=== PATIENT | female | born 1940 | race Caucasian/White ===

== ENCOUNTER 2018-02-11 09:07 | Inpatient (IN) | payer OTHER ==
[~2018-02-11] VITALS: Ht 160 cm; Wt 122.9 kg
[~2018-02-11 09:07] MED LIST: ALLOPURINOL100 M1 PO; CALCIUM600 M3 PO; CARDIZEM CD180 M1 PO; CARVEDILOL25 M1 PO; CLONAZEPAM0.5 M2 PO; COUMADIN4 M1 PO; COUMADIN5 M2 PO; KEFLEX500 M1 PO; OMEPRAZOLE20 M2 PO; ONE DAILY1 EACH PO; PRAVASTATIN SOD40 M2 PO; SPIRONOLACTONE25 M1 PO; VITAMIN B-121000 MC3 PO; VITAMIN C500 M6 PO; VITAMIN D2000 UNI1 PO; WARFARIN SODIUM5 M1 PO
--- NOTE | 2018-02-11 11:06 | ED UPPER/LOWER EXTREMITY COMPL ---
History of Present Illness General Chief Complaint: Lower Extremity Problems Stated Complaint: L LEG PAIN Source: patient, family, old records Exam Limitations: no limitations Vital Signs & Intake/Output Vital Signs & Intake/Output Vital Signs Date Time Temp Pulse Resp B/P B/P Pulse O2 O2 Flow FiO2 Mean Ox Delivery Rate 02/11 0925 96.4 103 22 102/73 95 Room Air Allergies Coded Allergies: No Known Allergies (01/14/16) Reconcile Medications Allopurinol 100 MG TABLET 1 TAB PO DAILY GOUT (Reported) Ascorbate Calcium (Vitamin C) 500 MG TABLET 1 TAB PO DAILY SUPPLEMENT ( Reported) Calcium (Elemental-Fr Calcarb) (Calcium) 600 MG CALCIUM (1,500 MG) TABLET 1 TAB PO DAILY SUPPLEMENT (Reported) Carvedilol 25 MG TABLET 1 TAB PO BID HEART/BP (Reported) Cholecalciferol (Vitamin D3) (Vitamin D) 2,000 UNIT TABLET 1 TAB PO DAILY SUPPLEMENT (Reported) Clonazepam 0.5 MG TABLET 2 TAB PO DAILY ANXIETY (Reported) Cyanocobalamin (Vitamin B-12) 1,000 MCG TABLET 1 TAB PO DAILY SUPPLEMENT ( Reported) Diltiazem HCl (Cardizem Cd) 180 MG CAP.ER.24H 1 CAP PO DAILY HEART/BP ( Reported) Hydrochlorothiazide 12.5 MG TABLET 1 TAB PO DAILY WATER RETENTION (Reported) Multivitamin (One Daily) 1 EACH TABLET 1 TAB PO DAILY VITAMIN SUPPORT ( Reported) Pravastatin Sodium 40 MG TABLET 1 TAB PO DAILY CHOLESTEROL (Reported) Spironolactone 25 MG TABLET 1 TAB PO DAILY DIURETIC (Reported) Warfarin Sodium (Coumadin) 5 MG TABLET 1 TAB PO 1700 BLOOD THINNER (Reported) Triage Note: HERE FOR RECHECK TO LEFT LOWER LEG, SEEN HERE ON 02/09 FOR CELLULITS TO LEFT LOWER LEG AND FOOT, PAIN IS WORSE. Triage Nurses Notes Reviewed? yes Onset: Gradual Duration: getting worse Timing: recent history Severity: moderate Severity Numbers: 5 Method of Injury: direct blow, fall HPI: Patient is a 78-year-old with PMH of atrial fibrillation on warfarin, HTN, HLD, edema/venous insufficiency, coronary artery disease with remote angioplasty, right foot gout who presents emergency room with family members in which old records indicate the patient was evaluated at [facility] emergency room 2 days ago for concerns of a mechanical fall approximately one week ago she states that she was taking a bottle And then lost her balance and fell to the pavement on the driveway resulting acute onset of left ankle and foot pain and left shoulder pain 2 days ago AT [facility] patient received x-rays of the left ankle and foot and left shoulder with unremarkable findings however there was concerned of cellulitis upon discharge patient was given Keflex patient has been compliant with her Keflex however family and patient are concerned of worsening erythema swelling ecchymosis in which the redness has expanded beyond the pen markings provided to patient 2 days ago. Patient does state that she had tactile fevers yesterday and intermittent episodes of nausea Patient denies any dyspnea on exertion cough hemoptysis but is complaining of worsening swelling (Grant Demarco) Past History Travel History Traveled to [place] past 21 day No Medical History Any Pertinent Medical History? 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 No (Grant Demarco) Review of Systems Review of Systems Constitutional: Reports: see HPI. EENTM: Reports: no symptoms. Respiratory: Reports: see HPI. Cardiovascular: Reports: see HPI. Gastrointestinal/Abdominal: Reports: no symptoms. Genitourinary: Reports: no symptoms. Musculoskeletal: Reports: see HPI. Skin: Reports: see HPI. Neurological/Psychological: Reports: no symptoms. Hematologic/Endocrine: Reports: no symptoms. Immunological: Reports: no symptoms. All Other Systems: Reviewed and Negative (Grant Demarco) Physical Exam Physical Exam General Appearance: no apparent distress, obese Head: atraumatic Eyes: Bilateral: normal appearance, PERRL. Ears, Nose, Throat: normal pharynx, hearing grossly normal Neck: normal inspection, no midline tenderness Cardiovascular/Respiratory: normal breath sounds, normal peripheral pulses, regular rate/rhythm Peripheral Pulses: 2+ dorsalis pedis (L) Neurologic/Tendon: normal sensation, normal motor functions, normal tendon functions, responds to pain, no evidence tendon injury Skin: intact Diagram Legs Front/Back 1) Noted erythema warmth and point tenderness with surgical pen markings 2) Noted erythema warmth and point tenderness no surgical pen markings 3) Noted scattered ecchymosis and swelling (Phoebe BRISENO,Grant) Progress Differential Diagnosis: arterial insufficiency, cellulitis, CHF, compartment syndrome, contusion, dislocation, DVT, fracture, gout, septic arthritis, sprain, tendon injury Plan of Care: Orders Procedure Date/time Status Heart Healthy Diet 02/11 D Active LACTIC ACID 02/11 1422 Active ED Holding Orders 02/11 1315 Active Admit to inpatient 02/11 1315 Active Vital Signs 02/11 131 Active Code Status 02/11 1315 Active Patient Data 02/11 1311 Active US-UNILATERAL VENOUS DOPPLER 02/11 1216 Active Add-on Test (ER Only) 02/11 1207 Active BLOOD CULTURE 02/11 112 Active TROPONIN LEVEL 02/11 112 Complete PROTHROMBIN TIME 02/11 112 Complete LACTIC ACID 02/11 112 Complete COMPREHENSIVE METABOLIC PANEL 02/11 112 Complete CBC WITHOUT DIFFERENTIAL 02/11 112 Complete B-TYPE NATRIURETIC PEP (BNP) 02/11 1122 Complete EKG 02/11 1122 Active Laboratory Tests 02/11/18 1216: Anion Gap 11, Estimated GFR > 60, BUN/Creatinine Ratio 26.7 H, Glucose 114 H, Lactic Acid 1.1, Calcium 9.6, Total Bilirubin 1.0, AST 17, ALT 21, Alkaline Phosphatase 57, Troponin I < 0.01, Ynk-X-Eutkgbjedyy Pept 923 H, Total Protein 6.5, Albumin 3.5, Globulin 3.0, Albumin/Globulin Ratio 1.2, PT 29.9 H, INR 2.72 H, CBC w Diff NO MAN DIFF REQ, RBC 4.33, MCV 92.7, MCH 31.3 H, MCHC 33.7, RDW 15.1 H, MPV 11.0 H, Gran % 70.6, Lymphocytes % 18.3 L, Monocytes % 9.3, Eosinophils % 1.3, Basophils % 0.5, Absolute Granulocytes 6.0, Absolute Lymphocytes 1.6, Absolute Monocytes 0.8 H, Absolute Eosinophils 0.1, Absolute Basophils 0 Microbiology 02/11 1225 BLOOD: Blood Culture - RECD 02/116 BLOOD: Blood Culture - RECD Patient was neurovascularly intact left lower extremities, patient has concerns of worsening cellulitis on exam compliant with 2 days of Keflex and which she has failed outpatient treatment Patient declines pain medications when offered No concerns of sepsis upon admission discussed disposition plan with patient and family members were aware and have no questions and agree Diagnostic Imaging: Viewed by Me: Radiology Read. CXR Impression: no acute abnormality Initial ED EKG: normal intervals, normal p-waves, normal QRS complex, 75 BPM,NSR Comments: PATIENT: ANGELICA MCGOWAN PRESENT AGE: 78 PATIENT ACCOUNT NO: [id number] : 39 LOCATION: [facility] ORDERING PHYSICIAN: Grant BRISENO SERVICE DATE: 02/11/18 EXAM TYPE: RAD - XRY-CHEST XRAY, TWO VIEWS EXAMINATION: XR CHEST CLINICAL INFORMATION: Shortness of breath COMPARISON: Chest x-ray was recent prior dated 02/16/2017 TECHNIQUE: 2 views of the chest were obtained. FINDINGS: Borderline heart size. Mild central pulmonary vascular congestion. Assessment of the lower lungs is limited due to patient's body habitus. No focal airspace opacity. Mild interstitial edema cannot be entirely excluded. Linear atelectasis or linear nodular opacity projecting upon the right midlung. Hazy opacity right medial base likely secondary to prominence of the epicardiac fat pad. Degenerative changes right shoulder. IMPRESSION: 1. Limited assessment of the lower lungs due to patient's body habitus. 2. Linear nodular appearing opacity right midlung represents a nonspecific finding. Monitoring is recommended. DICTATED BY: Celena Parra MD DATE/TIME DICTATED:02/11/181230 LEGAL BILLING SPECIALIST:DEE DATE/TIME TRANSCRIBED:02/11/181230 (Grant Demarco) Departure Departure Disposition: STILL A PATIENT Condition: Stable Clinical Impression Primary Impression: Cellulitis of right lower leg Referrals: Arminda AMARAL,Concetta King (PCP/Family) Departure Forms: Customer Survey General Discharge Information Admission Note Spoke With: Lewis Chen MD Documentation of Exam: Documentation of any treatments & extenuating circumstances including Concerns Regarding Discharge (functional status, medication knowledge or non-compliance, living conditions, etc.) that warrant an admission rather than observation: [ Patient requires general medicine admission for concerns of failed outpatient treatment with antibiotics in which patient requires IV antibiotics, repeat labs , infectious disease consultation] (Grant Demarco) PA/COTTONSEED MEAT PRESSER Co-Sign Statement Statement: ED Attending supervision documentation- [X] I saw and evaluated the patient. I have also reviewed all the pertinent lab results and diagnostic results. I agree with the findings and the plan of care as documented in the PA's/COTTONSEED MEAT PRESSER's documentation. [X] I have reviewed the ED Record and agree with the PA's/COTTONSEED MEAT PRESSER's documentation. [] Additions or exceptions (if any) to the PAs/COTTONSEED MEAT PRESSER's note and plan are summarized below: [Failed outpatient antibiotics and will require admission to the hospital for IV antibiotics.] (Addison AMARAL,Sky Hernandez)
[2018-02-11 12:26] LABS: ABSOLUTE BASOPHIL COUNT 0 /CUMM (0.0-0.2); ABSOLUTE EOSINOPHIL COUNT 0.1 /CUMM (0.0-0.7); ABSOLUTE LYMPH COUNT 1.6 /CUMM (1.2-3.4); ABSOLUTE MONOCYTE COUNT 0.8 /CUMM (0.10-0.60); BASOPHIL % 0.5 % (0.0-2.0); EOSINOPHIL % 1.3 % (0-5); GRANULOCYTE % 70.6 % (42.2-75.2); HEMATOCRIT 40.2 % (37-47); MEAN CORPUSCULAR HGB 31.3 PG (27.0-31.0); MEAN CORPUSCULAR HGB CONC 33.7 G/DL (33.0-37.0); MEAN CORPUSCULAR VOLUME 92.7 FL (81.0-99.0); PLATELET COUNT 154 /CUMM (130-400); RBC DISTRIBUTION WIDTH 15.1 % (11.5-14.5); RED BLOOD CELL CT 4.33 /CUMM (4.20-5.40); WHITE BLOOD CELL COUNT 8.5 /CUMM (4.8-10.8)
[2018-02-11 12:32] LABS: PT 29.9 SEC (9.4-12.5)
[2018-02-11] MEDS ORDERED: HYDROCHLOROTH12.5 M2 PO (12:33)
--- NOTE | 2018-02-11 12:38 | RADIOLOGY REPORT ---
EXAMINATION: XR CHEST CLINICAL INFORMATION: Shortness of breath COMPARISON: Chest x-ray was recent prior dated 02/16/2017 TECHNIQUE: 2 views of the chest were obtained. FINDINGS: Borderline heart size. Mild central pulmonary vascular congestion. Assessment of the lower lungs is limited due to patient's body habitus. No focal airspace opacity. Mild interstitial edema cannot be entirely excluded. Linear atelectasis or linear nodular opacity projecting upon the right midlung. Hazy opacity right medial base likely secondary to prominence of the epicardiac fat pad. Degenerative changes right shoulder. IMPRESSION: 1. Limited assessment of the lower lungs due to patient's body habitus. 2. Linear nodular appearing opacity right midlung represents a nonspecific finding. Monitoring is recommended.
--- NOTE | 2018-02-11 13:25 | History & Physical ---
Bryanna Dyer 02/11/18 1324: General Information and HPI History of Present Illness: Ms. Mosqueda is a 77 year old female with PMH of atrial fibrillation on warfarin , HTN, HLD, edema/venous insufficiency, coronary artery disease with remote angioplasty, right foot gout flare, who presents to the ED with LLE pain. Patient reports she had a fall 1 week ago after sneaker got stuck and hurt her L shoulder and L leg. She urgent care after 2-3 days and was sent to ED for further evaluation that reports wnl. She was sent home on Keflex in which she took 2 days of but pain worsened. Days after she began to have LLE pain and swelling with increased bruising. Pain 5-6/10 in severity, relieved by tylenol. She lives with her and performs her own ADLs. She denies fever, nausea, vomiting, urinary or bowel symptoms. Allergies/Medications Allergies: Coded Allergies: No Known Allergies (01/14/16) Home Med list Allopurinol 100 MG TABLET 1 TAB PO DAILY GOUT (Reported) Ascorbate Calcium (Vitamin C) 500 MG TABLET 1 TAB PO DAILY SUPPLEMENT ( Reported) Calcium (Elemental-Fr Calcarb) (Calcium) 600 MG CALCIUM (1,500 MG) TABLET 1 TAB PO DAILY SUPPLEMENT (Reported) Carvedilol 25 MG TABLET 1 TAB PO BID HEART/BP (Reported) Cholecalciferol (Vitamin D3) (Vitamin D) 2,000 UNIT TABLET 1 TAB PO DAILY SUPPLEMENT (Reported) Clonazepam 0.5 MG TABLET 2 TAB PO DAILY ANXIETY (Reported) Cyanocobalamin (Vitamin B-12) 1,000 MCG TABLET 1 TAB PO DAILY SUPPLEMENT ( Reported) Diltiazem HCl (Cardizem Cd) 180 MG CAP.ER.24H 1 CAP PO DAILY HEART/BP ( Reported) Hydrochlorothiazide 12.5 MG TABLET 1 TAB PO DAILY WATER RETENTION (Reported) Multivitamin (One Daily) 1 EACH TABLET 1 TAB PO DAILY VITAMIN SUPPORT ( Reported) Pravastatin Sodium 40 MG TABLET 1 TAB PO DAILY CHOLESTEROL (Reported) Spironolactone 25 MG TABLET 1 TAB PO DAILY DIURETIC (Reported) Warfarin Sodium (Coumadin) 5 MG TABLET 1 TAB PO 1700 BLOOD THINNER (Reported) Past History Travel History Traveled to [place] past 21 day No Medical History Neurological: NONE EENT: NONE Cardiovascular: AFIB, hypertension, HIGH CHOLESTEROL Respiratory: NONE Gastrointestinal: NONE Hepatic: NONE Renal: NONE Musculoskeletal: gout Psychiatric: NONE Endocrine: NONE Blood Disorders: NONE Cancer(s): NONE 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 Exam & Diagnostic Data Last 24 Hrs of Vital Signs/I&O Vital Signs Date Time Temp Pulse Resp B/P B/P Pulse O2 O2 Flow FiO2 Mean Ox Delivery Rate 02/11 925 96.4 103 22 102/73 95 Room Air Intake & Output 02/11 1600 02/11 0800 02/11 0000 Intake Total 0 Output Total Balance 0 Intake, Oral 0 Patient 240 lb Weight Weight Reported by Patient Measurement Method Physical Exam General Appearance Alert, Oriented X3, Cooperative, No Acute Distress Cardiovascular Normal S1, Normal S2 Lungs Clear to Auscultation, Normal Air Movement Abdomen Normal Bowel Sounds, Soft, No Tenderness Extremities L foot swelling and ecchymosis. Tender on palpation. Full ROM Last 24 Hrs of Labs/Henrry: Laboratory Tests 02/11/18 121: Anion Gap 11, Estimated GFR > 60, BUN/Creatinine Ratio 26.7 H, Glucose 114 H, Lactic Acid 1.1, Calcium 9.6, Total Bilirubin 1.0, AST 17, ALT 21, Alkaline Phosphatase 57, Troponin I < 0.01, Smu-H-Eolpqbddxjl Pept 923 H, Total Protein 6.5, Albumin 3.5, Globulin 3.0, Albumin/Globulin Ratio 1.2, PT 29.9 H, INR 2.72 H, CBC w Diff NO MAN DIFF REQ, RBC 4.33, MCV 92.7, MCH 31.3 H, MCHC 33.7, RDW 15.1 H, MPV 11.0 H, Gran % 70.6, Lymphocytes % 18.3 L, Monocytes % 9.3, Eosinophils % 1.3, Basophils % 0.5, Absolute Granulocytes 6.0, Absolute Lymphocytes 1.6, Absolute Monocytes 0.8 H, Absolute Eosinophils 0.1, Absolute Basophils 0 Microbiology 02/11 122 BLOOD: Blood Culture - RECD 02/12 1216 BLOOD: Blood Culture - RECD Diagnostic Data CXR Results FINDINGS: Borderline heart size. Mild central pulmonary vascular congestion. Assessment of the lower lungs is limited due to patient's body habitus. No focal airspace opacity. Mild interstitial edema cannot be entirely excluded. Linear atelectasis or linear nodular opacity projecting upon the right midlung. Hazy opacity right medial base likely secondary to prominence of the epicardiac fat pad. Degenerative changes right shoulder. IMPRESSION: 1. Limited assessment of the lower lungs due to patient's body habitus. 2. Linear nodular appearing opacity right midlung represents a nonspecific finding. Monitoring is recommended. Assessment/Plan Assessment: Ms. Mosqueda is a 77 year old female with PMH of atrial fibrillation on warfarin , HTN, HLD, edema/venous insufficiency, coronary artery disease with remote angioplasty, right foot gout flare, who presents to the ED with LLE pain after a fall. Problem list: LLE hematoma s/p mechanical fall LLE cellulitis Plan: Admit to general med for further evaluation and management Resume cephalexin and other home medications Surgery consult Hold Coumadin for possible worsening of hematoma Leg elevation and cold compressions prn Diet: Heart healthy DVT prophylaxis: ALPS Code: Full As Ranked By This Provider Problem List: 1. Lower extremity edema Core Measures/Misc (07/26) Acute Coronary Syndrome ACS Diagnosis: No Congestive Heart Failure Congestive Heart Failure Diagnosis No Cerebrovascular Accident CVA/TIA Diagnosis: No VTE (View Protocol) VTE Risk Factors Age>40 No Mechanical VTE Prophylaxis d/t N/A MechProphylax Ordered No VTE Pharm Prophylaxis d/t Medical Contraindication Sepsis (View protocol) Sepsis Present: No Lewis Chen MD 02/11/18 1540: Attending MD Review Statement Attending Statement Attending MD Statement: examined this patient, discuss w/resident/PA/ONLINE SERVICES MANAGER, agreed w/resident/PA/ONLINE SERVICES MANAGER, reviewed EMR data (avail), discussed with nursing, discussed with case mgmt, amended to note Attending Assessment/Plan: Patient is a very pleasant 78-year-old female with history of atrial fibrillation on anticoagulation therapy and coronary artery disease who presented with complaint of left lower extremity pain and swelling. According to the patient a few days ago while walking in her driveway she tried to kick a ball. She tripped and fell to the ground and was there for about 15 minutes before EMS finally arrived and helped her up. She reported some abrasions but no significant injury. 2 days later however she developed swelling and discoloration of the lower extremity. She went to an urgent care center where she was started on Keflex for presumed cellulitis. The swelling and discomfort in the lower extremity progress she decided to come to the ER for evaluation today. She arrived here afebrile hemodynamically stable. She was evaluated by the ER staff and referred to the inpatient medical service for further management for presumed cellulitis. On examination she is alert and oriented 3. She is not in any obvious distress. Her left lower extremities reveal diffuse ecchymotic areas involving toes leg and thigh. She has a small abrasion on the upper aspect of the leg. There is obvious hematoma on the lateral aspect of the upper leg. She has no calf tenderness. She has normal range of motion of her toes and ankles and knee. There is a very small area of erythema on the anterior aspect of the lower leg. She has no signs of injury on the right leg. Problems 1. Left lower extremity hematoma status post mechanical fall. 2. Mild superimposed cellulitis. 3. Atrial fibrillation on anticoagulation. 4. Coronary artery disease. Plan: -Admit to inpatient General medical service. -Pain control with Tylenol which patient reports has been working for her. We will continue empiric antibiotic therapy with Keflex. No indication for IV antibiotic therapy at present. -Recommend cold compress. -Recommend evaluation by the surgical service however I do not believe she requires any surgical intervention at present. She has evidence of compression syndrome at present. -Repeat CBCs tomorrow to ensure that her H&H is stable. -Recommend holding dose of Coumadin today. If she shows no evidence of worsening hematoma and H&H remains stable may consider resuming anticoagulation therapy after evaluation by the surgical service. -Continue her home regimen. Feroz Perez 02/11/18 1556: Resident Review Statement Resident Statement: examined this patient, discussed with global marketing intern Other Findings: Patient is a 77-year-old female with past medical history of A. fib on Coumadin, hypertension, hyperlipidemia, chronic venous insufficiency, coronary artery disease status post angioplasty, gout who presented to the emergency with left ankle and foot pain and left shoulder pain. Patient was evaluated in the ER 2 days ago(02/09/2018) for left foot pain and ankle pain secondary to mechanical fall about a week ago. X-rays of the foot done showed tissue swelling without fracture or joint effusion. Ultrasound lower extremity was negative for DVT. Patient was given Keflex upon discharge however patient reports that has been no improvement in her symptoms in fact her leg swelling and edema has been worsening. She also reports episodes of fever and nausea but denies any chest pain, palpitation, vomiting, diarrhea or constipation. In the ED her vitals were significant for a pulse of 103. Labs showed no white count, proBNP 923, INR 2.72. Chest x-ray was nonsignificant Foot x-ray showed tissue swelling without fracture or joint effusion. Ultrasound lower extremity was negative for DVT She was given IV Unasyn in the day. Patient refused physical exam. Left lower extremity showed erythema, 1+ edema Assessment Cellulitiss/p failure of outpatient treatment Recent history of fall with hematoma left foot History of A. fib status post cardioversion History of gout Hypertension/hyperlipidemia History of anxiety Plan -Admit to [facility] -Vitals per protocol -Continue po keflex for cellulitis, and no IV treatment required at this time -Pain control with Tylenol when necessary. -Continue leg elevation and cold compress -Blood cultures -Continue Cardizem and Coumadin for A. fib/AC. We will hold the Coumadin dose for today and resume it tomorrow. -We will continue allopurinol for gout -Continue home meds carvedilol, pravastatin, spironolactone -Continue clonazepam for anxiety DVT prophylaxis Coumadin Full code
--- NOTE | 2018-02-11 15:40 | Admission Certification ---
Admission Certification Certification Statement - As attending physician, I certify that at the time of - admission, based on clinical presentation, severity of - symptoms, need for further diagnostic testing and - therapeutic interventions, and risk of adverse outcomes - without in-hospital treatment, in my clinical assessment, - this patient requires an acute hospital stay for a minimum - of two nights or longer. I have also considered psychsocial - factors such as support system, advanced age, financial - issues, cognitive issues, and failed out-patient treatments, - past re-admission history, safety of patient, and lack of - compliance as applicable. Specific rationale supporting this admission is: Patient requires hospitalization for further monitoring and management of her left lower extremity hematoma.
[2018-02-11 15:49] LABS: PTT 41 SEC (25-37)
[2018-02-11 15:59] VITALS: BP 120/60
[2018-02-11 21:58] VITALS: BP 134/78
[2018-02-12 06:54] VITALS: BP 130/80
--- NOTE | 2018-02-12 07:39 | PN- Housestaff ---
Bryanna Dyer 02/12/18 0739: Subjective Follow-up For: LLE hematoma s/p mechanical fall LLE cellulitis Subjective: Patient reports a burning sensation on her dorsal aspect of L foot. She reports she has had a similar episode with a gout flare up. Review of Systems Constitutional: Reports: see HPI. Objective Last 24 Hrs of Vital Signs/I&O Vital Signs Date Time Temp Pulse Resp B/P B/P Pulse O2 O2 Flow FiO2 Mean Ox Delivery Rate 02/12 0654 98.1 75 20 130/80 92 Room Air / 2158 98.1 89 20 134/78 91 Room Air 04/ 1559 97.6 65 20 120/60 91 Room Air 04/ 1410 97.4 78 18 140/80 94 04/05 0925 96.4 103 22 102/73 95 Room Air Intake & Output 02/12 1600 02/12 0800 / 0000 Intake Total 240 Output Total 400 550 Balance -400 -310 Intake, Oral 240 Output, Urine 400 550 Patient 271 lb Weight Physical Exam General Appearance: Alert, Oriented X3, Cooperative, No Acute Distress Cardiovascular: Normal S1, Normal S2 Lungs: Clear to Auscultation, Normal Air Movement Abdomen: Normal Bowel Sounds, Soft, No Tenderness Extremities: L foot swelling, skin erythema on foot and distal LLE, ecchymosis Current Medications: Current Medications Sig/Catarina Start time Last Medication Dose Route Stop Time Status Admin Acetaminophen 325 MG Q6 PRN 02/11 1345 AC PO Allopurinol 100 MG DAILY 02/12 1000 AC PO Ampicillin Sodium/ 0 .STK-MED ONE 02/11 1204 DC Sulbactam Sodium .ROUTE Ampicillin Sodium/ 1,500 MG ONCE ONE 02/11 1130 DC 02/11 Sulbactam Sodium IV 02/11 1159 1222 Sodium Chloride 100 ML Atorvastatin Calcium 20 MG 1700 02/11 1700 AC PO Carvedilol 25 MG BID 02/11 2200 AC 02/11 PO 212 Cephalexin 500 MG Q6 02/11 1800 AC 02/12 PO 0630 Clonazepam 1 MG AT BEDTIME 02/11 2200 AC /05 PO 02/189 2129 Diltiazem HCl 180 MG DAILY 02/12 1000 AC PO Enoxaparin Sodium 40 MG DAILY 02/11 1336 DC SC Hydrochlorothiazide 12.5 MG DAILY 02/12 1000 AC PO Spironolactone 25 MG DAILY 02/12 1000 AC PO Last 24 Hrs of Lab/Henrry Results Last 24 Hrs of Labs/Mics: Laboratory Tests 02/12/18 0800: PT Pending, INR Pending, CBC w Diff Pending, WBC Pending, RBC Pending, Hgb Pending, Hct Pending, MCV Pending, MCH Pending, MCHC Pending, RDW Pending, Plt Count Pending, MPV Pending 02/11/18 1422: Lactic Acid Cancelled 02/11/18 1216: Anion Gap 11, Estimated GFR > 60, BUN/Creatinine Ratio 26.7 H, Glucose 114 H, Lactic Acid 1.1, Calcium 9.6, Total Bilirubin 1.0, AST 17, ALT 21, Alkaline Phosphatase 57, Troponin I < 0.01, Njr-O-Sgpsjcrpldw Pept 923 H, Total Protein 6.5, Albumin 3.5, Globulin 3.0, Albumin/Globulin Ratio 1.2, PT 29.9 H, INR 2.72 H, APTT 41 H, CBC w Diff NO MAN DIFF REQ, RBC 4.33, MCV 92.7, MCH 31.3 H, MCHC 33.7, RDW 15.1 H, MPV 11.0 H, Gran % 70.6, Lymphocytes % 18.3 L, Monocytes % 9.3, Eosinophils % 1.3, Basophils % 0.5, Absolute Granulocytes 6.0, Absolute Lymphocytes 1.6, Absolute Monocytes 0.8 H, Absolute Eosinophils 0.1, Absolute Basophils 0 Microbiology 02/11 1225 BLOOD: Blood Culture - RECD 02/11 121 BLOOD: Blood Culture - RECD Assessment/Plan Assessment: Ms. Mosqueda is a 77 year old female with PMH of atrial fibrillation on warfarin , HTN, HLD, edema/venous insufficiency, coronary artery disease with remote angioplasty, right foot gout flare, who presents to the ED with LLE pain after a fall. Problem list: LLE hematoma s/p mechanical fall LLE cellulitis Plan: Discontinue cephalexin and start IV Unasyn due to worsening cellulitis Surgery recommendations appreciated Resume Coumadin Leg elevation and cold compressions prn Obtain UA for gout PT evaluation Gentle hydration for dehydration which may also exacerbate gout Diet: Heart healthy DVT prophylaxis: ALPS Code: Full Problem List: 1. Cellulitis of left leg Pain Ratin Pain Location: L foot Pain Goal: Pain 4 or less Pain Plan: Tylenol DS Tomorrow's Labs & Rationales: PT, ADOLPH Chen MD,[place] 02/12/18 1349: Attending MD Review Statement Attending Statement Attending MD Statement: examined this patient, discuss w/resident/PA/ASSEMBLY LEADER, agreed w/resident/PA/ASSEMBLY LEADER, reviewed EMR data (avail), discussed with nursing, discussed with case mgmt, amended to note Attending Assessment/Plan: Patient seen and examined. Continues to complain of left lower extremity pain. On examination erythema present yesterday is more extensive today. The ecchymotic area is unchanged. Lower extremity pulses remain palpable. She continues to have normal range of motion of her toes and ankles and knee. The abrasion in the upper aspect of the leg is unchanged. Labs show that her hemoglobin level is stable. Problems 1. Left lower extremity hematoma status post mechanical fall. 2. Cellulitis. 3. Atrial fibrillation on anticoagulation. 4. Coronary artery disease. Recommendations: -Optimize pain control. Begin patient on extra strength Tylenol which she states has helped her in the past. May utilize morphine 0.5 mg IV every 4 hours for breakthrough pain. -Due to the worsening cellulitis begin patient on IV Unasyn. -Hemoglobin level is stable. Hematoma is no worsening in size. No need for surgical intervention at present. May resume her anticoagulation therapy. -Physical therapy to mobilize patient. -Anticipate discharge over the weekend if the area of cellulitis is improving. -Discontinue IV fluids.
[2018-02-12 08:28] LABS: PT 26.1 SEC (9.4-12.5)
[2018-02-12 08:46] LABS: ABSOLUTE BASOPHIL COUNT 0 /CUMM (0.0-0.2); ABSOLUTE EOSINOPHIL COUNT 0.1 /CUMM (0.0-0.7); ABSOLUTE GRANULOCYTE CT 5.6 /CUMM (1.4-6.5); ABSOLUTE LYMPH COUNT 1.2 /CUMM (1.2-3.4); ABSOLUTE MONOCYTE COUNT 0.7 /CUMM (0.10-0.60); BASOPHIL % 0.3 % (0.0-2.0); EOSINOPHIL % 1.7 % (0-5); GRANULOCYTE % 72.6 % (42.2-75.2); HEMATOCRIT 39.1 % (37-47); MEAN CORPUSCULAR HGB 31.2 PG (27.0-31.0); MEAN CORPUSCULAR HGB CONC 33.3 G/DL (33.0-37.0); MEAN CORPUSCULAR VOLUME 93.8 FL (81.0-99.0); MEAN PLATELET VOLUME 11.2 FL (7.4-10.4); PLATELET COUNT 145 /CUMM (130-400); RBC DISTRIBUTION WIDTH 15.1 % (11.5-14.5); RED BLOOD CELL CT 4.16 /CUMM (4.20-5.40); WHITE BLOOD CELL COUNT 7.7 /CUMM (4.8-10.8)
[2018-02-12 14:09] VITALS: BP 106/70
--- NOTE | 2018-02-12 15:41 | Patient Discharge Instructions ---
Discharge Instructions General Discharge Information You were seen/treated for: Left lower extremity cellulitis Left foot hematoma You had these procedures: none Special Instructions: Follow up with your PCP within 1 week of discharge. Hydrochlorothiazide has been stopped as it increases uric acid level, please discuss with PCP. Continue Allopurinol 100 mg for gout. Diet Recommended Diet: Heart Healthy Activity Other activity limits: As tolerated Acute Coronary Syndrome Inclusion Criteria At DC or during hospital stay patient has or had the following: ACS DIAGNOSIS No Discharge Core Measures Meds if any: Prescribed or Continued at Discharge Meds if any: NOT Prescribed or Continued at Discharge Congestive Heart Failure Inclusion Criteria At DC or during hospital stay patient has or had the following: CHF DIAGNOSIS No Discharge Core Measures Meds if any: Prescribed or Continued at Discharge Meds if any: NOT Prescribed or Continued at Discharge Cerebrovascular accident Inclusion Criteria At DC or during hospital stay patient has or had the following: CVA/TIA Diagnosis No Discharge Core Measures Meds if any: Prescribed or Continued at Discharge Meds if any: NOT Prescribed or Continued at Discharge Venous thromboembolism Inclusion Criteria VTE Diagnosis No VTE Type NONE VTE Confirmed by (Test) NONE Discharge Core Measures - Per Current guidelines, there needs to be overlap - treatment for the first 5 days of Warfarin therapy. - If discharged on Warfarin prior to 5 days of - overlap therapy, the patient will need to be - assessed for post discharge needs including - *Post discharge parental anticoagulation - *Warfarin and/or parental anticoagulation education - *Follow up date to check INR post discharge At least 5 days overlap therapy as Inpatient No Meds if any: Prescribed or Continued at Discharge Note: Overlap Therapy is Warfarin and Anticoagulant Meds if any: NOT Prescribed or Continued at Discharge
[2018-02-12] MEDS ORDERED: ACETAMINOPHEN500 M4 PO (15:42)
[2018-02-12] MEDS ORDERED: AUGMENTIN 875-1 EACH PO (15:43)
[2018-02-12 22:24] VITALS: BP 116/70
[2018-02-13 06:52] VITALS: BP 112/68
[2018-02-13 08:50] LABS: PT 19.5 SEC (9.4-12.5)
--- NOTE | 2018-02-13 10:07 | PN- Housestaff ---
See Addendum Subjective Follow-up For: LLE hematoma s/p mechanical fall LLE cellulitis Subjective: Patient seen and examined. Resting comfortably. JUSt came from using the restroom. Continues to complain of burning sensation on dorsum of left foot, believes she is an episode of gout flareup Review of Systems Constitutional: Reports: see HPI. Objective Last 24 Hrs of Vital Signs/I&O Vital Signs Date Time Temp Pulse Resp B/P B/P Pulse O2 O2 Flow FiO2 Mean Ox Delivery Rate 02/13 1446 97.7 76 20 110/78 92 02/13 0728 112/68 02/13 0652 97.8 74 20 112/68 95 Room Air 02/12 2224 97.7 77 20 116/70 92 02/12 2108 77 116/70 Intake & Output 02/13 1600 02/13 0800 02/13 0000 Intake Total 240 250 500 Output Total 600 450 Balance -360 250 50 Intake, IV 200 100 Intake, Oral 240 50 400 Output, Urine 600 450 Physical Exam General Appearance: Alert, Oriented X3 Other Physical Findings: Cardiovascular: Normal S1, Normal S2 Lungs: Clear to Auscultation, Normal Air Movement Abdomen: Normal Bowel Sounds, Soft, No Tenderness Extremities: L foot swelling, skin erythema on foot and distal LLE, ecchymosis Current Medications: Current Medications Sig/Catarina Start time Last Medication Dose Route Stop Time Status Admin Acetaminophen 650 MG ONCE ONE 02/13 0845 DC 02/13 PO 02/13 0846 0854 Acetaminophen 1,000 MG Q6-PRN PRN 02/12 1045 AC 02/12 PO 2230 Allopurinol 200 MG DAILY 02/14 1000 AC PO Allopurinol 100 MG DAILY 02/12 1000 DC 02/13 PO 0728 Ampicillin Sodium/ 1,500 MG Q6 02/12 1200 AC 02/13 Sulbactam Sodium IV 1131 Sodium Chloride 100 ML Atorvastatin Calcium 20 MG 1700 02/11 1700 AC 02/12 PO 1643 Carvedilol 25 MG BID 02/11 2200 AC 02/13 PO 0728 Clonazepam 1 MG AT BEDTIME 02/11 2200 AC / PO 02/18 2159 2109 Dextrose/Sodium 1,000 ML Q20H 02/12 1215 DC 02/12 Chloride IV 02/13 0814 1305 Diltiazem HCl 180 MG DAILY 02/12 1000 AC 02/13 PO 0728 Hydrochlorothiazide 12.5 MG DAILY 02/12 1000 DC 02/13 PO 0728 Morphine Sulfate 0.5 MG Q4 HRS NEEDED PRN 02/12 1515 AC IV Spironolactone 25 MG DAILY 02/12 1000 AC 02/13 PO 0728 Last 24 Hrs of Lab/Henrry Results Last 24 Hrs of Labs/Mics: Laboratory Tests 02/13/18 0754: Anion Gap 11, Estimated GFR 53 L, BUN/Creatinine Ratio 23.0, PT 19.5 H, INR 1.78 H Assessment/Plan Assessment: Ms. Mosqueda is a 77 year old female with PMH of atrial fibrillation on warfarin , HTN, HLD, edema/venous insufficiency, coronary artery disease with remote angioplasty, right foot gout flare, who presents to the ED with LLE pain after a fall. Problem list: LLE hematoma s/p mechanical fall LLE cellulitis Plan: -Continue IV Unasyn -Leg elevation and cold compressions prn -Dose warfarin as per INR -In setting of hyperuricemia and suspicion of gout we are going to increase allopurinol to 200 and discontinue hydrochlorothiazide -PT evaluation Diet: Heart healthy DVT prophylaxis: ALPS Code: Full Problem List: 1. Cellulitis of left leg Pain Ratin Pain Location: L foot Pain Goal: Pain 4 or less Pain Plan: PRN Tomorrow's Labs & Rationales: \INR
[2018-02-13 14:46] VITALS: BP 110/78
[2018-02-13 22:07] VITALS: BP 132/80
[2018-02-14 06:33] VITALS: BP 124/76
[2018-02-14 07:21] VITALS: BP 124/76
[2018-02-14 08:32] LABS: PT 18.4 SEC (9.4-12.5)
[2018-02-14] MEDS ORDERED: AUGMENTIN 875-1 EACH PO ×2 (08:39→09:01)
[2018-02-14] MEDS ORDERED: ACETAMINOPHEN500 M4 PO ×2 (08:42→09:01)
[2018-02-14] MEDS ORDERED: ALLOPURINOL100 M1 PO ×4 (08:59→11:06)
--- NOTE | 2018-02-14 10:09 | PN- Housestaff ---
See Addendum Subjective Follow-up For: LLE cellulitis LLE hematoma mechanical fall Complaints: pain 01/16 Subjective: Patient is doing much better today. Pain in leg improved. Was able to walk with physical therapy. Cellulitis looks much better. Review of Systems Constitutional: Reports: no symptoms. EENTM: Reports: no symptoms. Cardiovascular: Reports: no symptoms. Respiratory: Reports: no symptoms. Gastrointestinal: Reports: no symptoms. Genitourinary: Reports: no symptoms. Musculoskeletal: Reports: joint swelling, muscle pain. Skin: Reports: rash. Objective Last 24 Hrs of Vital Signs/I&O Vital Signs Date Time Temp Pulse Resp B/P B/P Pulse O2 O2 Flow FiO2 Mean Ox Delivery Rate 02/14 0721 124/76 02/14 0633 97.7 82 20 124/76 92 Room Air 02/13 2207 98.1 80 20 132/80 92 Room Air 02/13 2146 62 110/78 02/13 1446 97.7 76 20 110/78 92 Intake & Output 02/14 1600 02/14 0800 02/14 0000 Intake Total 260 925 Output Total 800 250 Balance -540 675 Intake, IV 260 125 Intake, Oral 800 Output, Urine 800 250 Physical Exam General Appearance: Alert, Oriented X3, Cooperative, No Acute Distress Skin: erythema and swelling in the LLE Skin Temp/Moisture Exam: Warm/Dry Sepsis Skin Exam (color): Normal for Ethnicity HEENT: Atraumatic, PERRLA, EOMI Neck: Supple, No JVD Lymphatic: Cervical nl Cardiovascular: Regular Rate, Normal S1, Normal S2, No Murmurs Lungs: Clear to Auscultation, Normal Air Movement Abdomen: Normal Bowel Sounds, Soft, No Tenderness Neurological: Normal Speech, Strength at 5/5 X4 Ext Extremities: LLE swelling and erythema Current Medications: Current Medications Sig/Catarina Start time Last Medication Dose Route Stop Time Status Admin Acetaminophen 650 MG ONCE ONE 02/14 845 DC 02/14 PO 02/14 846 0844 Acetaminophen 1,000 MG Q6-PRN PRN 02/12 1045 AC 02/12 PO 2230 Allopurinol 200 MG DAILY 02/14 1000 DC PO Allopurinol 100 MG DAILY 02/14 1000 AC 02/14 PO 0721 Allopurinol 100 MG DAILY 02/12 1000 DC 02/13 PO 0728 Ampicillin Sodium/ 1,500 MG Q6 02/12 1200 AC 02/14 Sulbactam Sodium IV 0550 Sodium Chloride 100 ML Atorvastatin Calcium 20 MG 1700 02/11 1700 AC 02/13 PO 1655 Carvedilol 25 MG BID 02/11 2200 AC 02/14 PO 0721 Clonazepam 1 MG AT BEDTIME 02/11 2200 AC 02/13 PO 02/18 2159 2141 Diltiazem HCl 180 MG DAILY 02/12 1000 AC 02/14 PO 0721 Hydrochlorothiazide 12.5 MG DAILY 02/12 1000 DC 02/13 PO 0728 Morphine Sulfate 0.5 MG Q4 HRS NEEDED PRN 02/12 1515 AC IV Spironolactone 25 MG DAILY 02/12 1000 AC 02/14 PO 0720 Warfarin Sodium 5 MG COUMADIN 1700 ONE 02/13 1700 DC 02/13 PO 02/13 1701 1746 Last 24 Hrs of Lab/Henrry Results Last 24 Hrs of Labs/Mics: Laboratory Tests 02/14/18 0745: Anion Gap 12, Estimated GFR > 60, BUN/Creatinine Ratio 28.8 H, PT 18.4 H, INR 1.68 H Assessment/Plan Assessment: Ms. Mosqueda is a 77 year old female with PMH of atrial fibrillation on warfarin , HTN, HLD, edema/venous insufficiency, coronary artery disease with remote angioplasty, right foot gout flare, who presents to the ED with LLE pain after a fall. Problem list: LLE hematoma s/p mechanical fall LLE cellulitis Plan: -Patient improved on IV Unasyn. Plan to discharge today on by mouth Keflex to complete a total 10 day course. -Leg elevation and cold compressions prn -Dose warfarin as per INR -Continue Allopurinol 100 MG for gout. Appears to have improved patient's pain and swelling. -HCTZ has been discontinued(associated with hyperuricemia) -Patient has been able to work with physical therapy and ambulate with a walker. -Plan to discharge home today with home services. Diet: Heart healthy DVT prophylaxis: ALPS Code: Full Problem List: 1. Cellulitis of left leg 2. Lower extremity edema Pain Ratin Pain Location: LLE Pain Goal: Remain pain free Pain Plan: TYLENOL Tomorrow's Labs & Rationales: NA
--- NOTE | 2018-02-15 07:15 | Discharge Summary ---
Hospital Course Allergies: Coded Allergies: No Known Allergies (01/14/16) Discharge Instructions Medications at Discharge Discharge Medications: Stop taking the following medications: Allopurinol (Allopurinol) 100 MG TABLET ORAL DAILY Qty = 30 Hydrochlorothiazide (Hydrochlorothiazide) 12.5 MG TABLET ORAL DAILY Continue taking these medications: Warfarin Sodium (Coumadin) 5 MG TABLET 1 Tablet ORAL 5 PM Comments: NOT GIVEN IN HOSPITAL Diltiazem HCl (Cardizem Cd) 180 MG CAP.ER.24H 1 Capsule ORAL DAILY Qty = 90 Comments: Last Taken: 06/19/17 Time: 9AM Clonazepam (Clonazepam) 0.5 MG TABLET 2 Tablet ORAL DAILY Qty = 60 Comments: Last Taken: 06/19/17 Time: MIDNIGHT Carvedilol (Carvedilol) 25 MG TABLET 1 Tablet ORAL TWICE DAILY Qty = 180 Comments: Last Taken: 06/19/17 Time: 9AM Spironolactone (Spironolactone) 25 MG TABLET 1 Tablet ORAL DAILY Qty = 90 Comments: Last Taken: 06/19/17 Time: 9AM Pravastatin Sodium (Pravastatin Sodium) 40 MG TABLET 1 Tablet ORAL DAILY Qty = 90 Comments: NOT GIVEN IN HOSPITAL Ascorbate Calcium (Vitamin C) 500 MG TABLET 1 Tablet ORAL DAILY Qty = 60 Comments: NOT GIVEN IN HOSPITAL Calcium (Elemental-Fr Calcarb) (Calcium) 600 MG CALCIUM (1,500 MG) TABLET 1 Tablet ORAL DAILY Qty = 30 Comments: NOT GIVEN IN HOSPITAL Cholecalciferol (Vitamin D3) (Vitamin D) 2,000 UNIT TABLET 1 Tablet ORAL DAILY Qty = 30 Comments: NOT GIVEN IN HOSPITAL Cyanocobalamin (Vitamin B-12) 1,000 MCG TABLET 1 Tablet ORAL DAILY Qty = 60 Comments: NOT GIVEN IN HOSPITAL Multivitamin (One Daily) 1 EACH TABLET 1 Tablet ORAL DAILY Start taking the following new medications: Amoxicillin/Potassium Clav (Augmentin 875-125 Tablet) 875 MG-125 MG TABLET 1 Tablet ORAL TWICE DAILY Qty = 15 No Refills Instructions: . Acetaminophen (Acetaminophen) 500 MG TABLET 2 Tablet ORAL EVERY 8 HOURS Qty = 20 No Refills Instructions: . Allopurinol (Allopurinol) 100 MG TABLET 1 Tablet ORAL DAILY Qty = 30 No Refills Instructions: .TAKE 200 MG ( 1 TABS)
== END 2018-02-14 11:20 | DRG 603 ==
LOC: ERH 09:07 → 2NA 13:15 → ERHI 13:15 → ENRESERV 13:41 → ENTRNSPT 15:23 → EDTRNSPT 15:26 → EDTRNSPTSTS 15:26 → 2NA 15:44 → CMPTRNSPT 15:52 → ENPENDDIS 02-14 11:04 → 2NA 02-14 11:20
PROVIDERS: Internal Medicine; Physician Assistant; Student in an Organized Health Care Education/Training Program
DX: L03.116 Cellulitis of left lower limb (principal); I48.2 Chronic atrial fibrillation; Z68.42 Body mass index [BMI] 45.0-49.9, adult; I87.2 Venous insufficiency (chronic) (peripheral); S80.12XA Contusion of left lower leg, initial encounter; I25.10 Atherosclerotic heart disease of native coronary artery without angina pectoris; E66.9 Obesity, unspecified; M10.9 Gout, unspecified; E78.5 Hyperlipidemia, unspecified; W19.XXXA Unspecified fall, initial encounter; Y92.007 Garden or yard of unspecified non-institutional (private) residence as the place of occurrence of the external cause; Z79.01 Long term (current) use of anticoagulants; Z98.61 Coronary angioplasty status
CPT/HCPCS: 2NASP; 36415; 36592; 71046; 82436; 87040; 93005; 93010; 96374; 97161-GP; 97530-GO; J0131; J7042